=== PATIENT | female | born 1975 | race Hispanic/Latino ===

== ENCOUNTER 2017-06-09 16:08 | Emergency (ER) | payer BC ==
[2017-06-09 16:51] VITALS: BP 136/68; PULSE 86; RESP 18; TEMP 98.5; O2SAT 98
--- NOTE | 2017-06-09 16:55 | ED PDOC ---
Arrival/HPI - General Time Seen by Provider: 06/09/17 16:49 Historian: Patient - History of Present Illness Narrative History of Present Illness (Text): 06/09/17 16:51 42yo female with PMhx of Diabetes present to ED for right distal arm redness, swelling and pruritis. States she was bitten by insect last night. Thinks it was a spider. Came to ED for the redness and swelling. States the swelling improved significantly from what it was earlier. Denies tongue swelling, chest pain, SOB, any other complaint. Past Medical History - Provider Review Nursing Documentation Reviewed: Yes Family/Social History - Physician Review Nursing Documentation Reviewed: Yes Family/Social History: Unknown Family HX Allergies/Home Meds Allergies/Adverse Reactions: Allergies naproxen Allergy (Verified 06/09/17 16:37) URTICARIA Home Medications: Home Meds Medication Instructions Recorded Confirmed metFORMIN [glucOPHAGE] 500 mg PO BID 06/09/17 06/09/17 Review of Systems - Physician Review All systems were reviewed & negative as marked: Yes - Review of Systems Constitutional: Normal Eyes: Normal ENT: Normal Respiratory: Normal Cardiovascular: Normal Gastrointestinal: Normal Genitourinary Female: Normal Musculoskeletal: Normal Skin: Rash, Pruritis Neurological: Normal Endocrine: Normal Hemo/Lymphatic: Normal Psychiatric: Normal Physical Exam Vital Signs Reviewed: Yes Vital Signs Temp Pulse Resp BP Pulse Ox 06/09/17 16:51 98.5 F 86 18 136/68 98 Temperature: Afebrile Blood Pressure: Normal Pulse: Regular Respiratory Rate: Normal Appearance: Positive for: Well-Appearing, Non-Toxic, Comfortable Pain Distress: None Mental Status: Positive for: Alert and Oriented X 3 - Systems Exam Head: Present: Atraumatic, Normocephalic Pupils: Present: PERRL Extroacular Muscles: Present: EOMI Conjunctiva: Present: Normal Mouth: Present: Moist Mucous Membranes Neck: Present: Normal Range of Motion Respiratory/Chest: Present: Clear to Auscultation, Good Air Exchange. No: Respiratory Distress, Accessory Muscle Use Cardiovascular: Present: Regular Rate and Rhythm, Normal S1, S2. No: Murmurs Abdomen: Present: Normal Bowel Sounds. No: Tenderness, Distention, Peritoneal Signs Back: Present: Normal Inspection Upper Extremity: Present: Normal Inspection. No: Cyanosis, Edema Lower Extremity: Present: Normal Inspection. No: Edema Neurological: Present: GCS=15, CN II-XII Intact, Speech Normal Skin: Present: Warm, Dry, Normal Color, Erythematous (Distal left volar forearm/ wrist with warmth ), Hot (Warm to touch). No: Rashes Psychiatric: Present: Alert, Oriented x 3, Normal Insight, Normal Concentration Medical Decision Making - Medication Orders Current Medication Orders: Discontinued Medications Cephalexin Monohydrate (Keflex) 500 mg PO STAT STA PRN Reason: Protocol Stop: 06/09/17 17:03 Diphenhydramine HCl (Benadryl) 25 mg PO STAT STA Stop: 06/09/17 17:01 Famotidine (Pepcid) 20 mg PO STAT STA Stop: 06/09/17 17:01 Prednisone (Prednisone Tab) 40 mg PO STAT STA Stop: 06/09/17 17:02 Disposition/Present on Arrival - Present on Arrival Any Indicators Present on Arrival: No History of DVT/PE: No History of Uncontrolled Diabetes: No Urinary Catheter: No History of Decub. Ulcer: No History Surgical Site Infection Following: None - Disposition Have Diagnosis and Disposition been Completed?: Yes Diagnosis: Insect bite Disposition: HOME/ ROUTINE Disposition Time: 17:15 Patient Plan: Discharge Condition: STABLE Additional Instructions: Follow up with your doctor Return to ED for any new or worsening symptoms Prescriptions: Cephalexin [Keflex] 500 mg PO QID #28 capsule DiphenhydrAMINE [Benadryl] 25 mg PO Q6 #20 cap Famotidine [Pepcid] 20 mg PO DAILY #10 tab predniSONE [Prednisone] 10 mg PO DAILY #4 tab Referrals: Sara Simmons DO [Primary Care Provider] - Follow up with primary
[2017-06-09 17:00] VITALS: BMI 32.4
[2017-06-09] MEDS ORDERED: DiphenhydrAMINE 12.5 mg/5 ml LIQ UD (5 ml) PO STA (17:00)
== END 2017-06-09 18:00 | disposition home or self-care (01) ==
LOC: ED 16:08
DX: S40.861A Insect bite (nonvenomous) of right upper arm, initial encounter (principal); W57.XXXA Bitten or stung by nonvenomous insect and other nonvenomous arthropods, initial encounter

== ENCOUNTER 2017-07-03 10:23 | Inpatient (IN) | payer BC ==
--- NOTE | 2017-07-03 10:52 | ED PDOC ---
Arrival/HPI - General Chief Complaint: Abnormal Skin Integrity Time Seen by Provider: 07/03/17 10:42 Historian: Patient - History of Present Illness Narrative History of Present Illness (Text): 07/03/17 10:42 42 y/o female, pmh including dm, allergic to keflex (but not penicillin)/ naproxen (but not motrin or other nsaids), nkda, c/o lt. thigh pain and swelling x 1 week. Pt. stated that it started off as a small pimple which she was evaluated at the [facility] urgent care which did an incision but no drainage then put on the bactrim ds 06/30/2017, not improving and went to the [facility] again, evaluated by another doctor had another incision today again which again no drainage but noted to still have pain and worsening of the redness with no relief with bactrim, send to the ER for evaluation, noted to have fever at home but not sure at home as she was taking motrin around the clock, no antipyretic or nsaids taken for the past 10 hours, no night sweat, no dizziness, no calf pain, no other medical or psychological complaints. Past Medical History - Provider Review Nursing Documentation Reviewed: Yes - Infectious Disease Hx of Infectious Diseases: None - Endocrine/Metabolic Hx Diabetes Mellitus Type 2: Yes - Psychiatric Hx Substance Use: No Family/Social History - Physician Review Nursing Documentation Reviewed: Yes Family/Social History: Unknown Family HX Smoking Status: Never Smoked Hx Alcohol Use: No Hx Substance Use: No Allergies/Home Meds Allergies/Adverse Reactions: Allergies cephalexin [From Keflex] Allergy (Verified 07/03/17 10:42) URTICARIA naproxen Allergy (Verified 07/03/17 10:41) URTICARIA Home Medications: Home Meds Medication Instructions Recorded Confirmed metFORMIN [glucOPHAGE] 500 mg PO BID 06/09/17 07/03/17 Sulfamethoxazole/Trimethoprim 1 tab PO BID 07/03/17 07/03/17 [Bactrim DS Tab] Review of Systems - Review of Systems Constitutional: Fevers. absent: Fatigue Eyes: absent: Vision Changes ENT: absent: Hearing Changes Respiratory: absent: SOB, Cough Cardiovascular: absent: Chest Pain Gastrointestinal: absent: Abdominal Pain, Nausea, Vomiting Musculoskeletal: Myalgias. absent: Arthralgias, Neck Pain, Joint Swelling Skin: Rash, Skin Lesions, Cellulitis. absent: Pruritis, Laceration, Abscess, Ulcer Neurological: absent: Headache Endocrine: absent: Diaphoresis Hemo/Lymphatic: absent: Adenopathy Psychiatric: absent: Anxiety, Depression, Suicidal Ideation Physical Exam Vital Signs Temp Pulse Resp BP Pulse Ox 07/03/17 17:40 102.7 F H 88 18 112/67 98 07/03/17 17:20 102.7 F H 07/03/17 17:02 100.3 F H 89 18 120/80 07/03/17 16:30 100.3 F H 07/03/17 16:00 100.3 F H 89 18 120/80 99 07/03/17 12:23 82 18 102/65 98 07/03/17 10:37 100.2 F H 112 H 18 108/68 99 Temperature: Febrile Blood Pressure: Normal Pulse: Tachycardic Respiratory Rate: Normal Appearance: Positive for: Well-Appearing, Non-Toxic Pain Distress: Moderate Mental Status: Positive for: Alert and Oriented X 3 - Systems Exam Head: Present: Atraumatic, Normocephalic Pupils: Present: PERRL Extroacular Muscles: Present: EOMI Conjunctiva: Present: Normal Mouth: Present: Moist Mucous Membranes Neck: Present: Normal Range of Motion Respiratory/Chest: Present: Clear to Auscultation, Good Air Exchange. No: Respiratory Distress, Accessory Muscle Use Cardiovascular: Present: Regular Rate and Rhythm, Normal S1, S2. No: Murmurs Abdomen: Present: Normal Bowel Sounds. No: Tenderness, Distention, Peritoneal Signs Back: Present: Normal Inspection Upper Extremity: Present: Normal Inspection. No: Cyanosis, Edema Lower Extremity: Present: Normal Inspection. No: Edema Neurological: Present: GCS=15, Speech Normal, Motor Func Grossly Intact, Gait Normal, Memory Normal Skin: Present: Warm, Dry, Rashes (Lt. thigh medially noted to have 2 incision wound in the middle with approx. [id number] cellulitis with proximal and distal streaking, +lt. inguinal lymphenapathy, +DPPT pulses. ), Normal Color Psychiatric: Present: Alert, Oriented x 3, Normal Insight, Normal Concentration Medical Decision Making ED Course and Treatment: 07/03/17 11:01 -labs/esr/crp/ua -LLE Venuous doppler -CT LLE r/o abscess/gangrene gas -IVF/vancomycin/zosyn/toradol/tylenol -Observe and reassess 07/03/17 14:47 -Urine hcg is negative -EKG: NSR @ 93 BPM, no ST elevation or depression, T wave inversion on the lead III/V2/V3 with no previous ekg for comparison. -Chest xray: no active disease -LLE Venuous Doppler: as per preliminary report, no acute DVT -CT LLE: Superficial cellulitis proximal left thigh without drainable collection , vascular, muscular or osseous abnormality. -Labs show no acute findings except wbc 15.0 and anemia hgb 10.2 (no previous comparison, no dark stool or GI discomfort, will need trending/work up) -Lactic acid 1.1 -ESR is 75 (elevated) -UA show no UTI -Pt. failed out patient po antibiotic, +febrile with +tachycardia, +leukocytosis , will need admission for IV antibiotic and -Paging the medicine clinical applications specialist Dr. Robledo (covering Dr. Cheng) as the pmd is Dr. Simmons, discussed with the patient about the labs/radiology study and admission plan which she agreed to be admitted as well. 07/03/17 15:07 -I spoke to Dr. Robledo about the case/labs/radiology result, agreed to admit the service but admit to Dr. Cheng's service with Dr. Alvarado on routine consult. -I discussed with Dr. Cordelia Oswald, he agreed on the diagnosis/treatment and admission plan, will put in the admission order. 07/03/17 16:25 -Pt. has a fever at again 100.3F, tylenol 650mg po ordered as she was given toradol earlier. - Lab Interpretations Lab Results: 07/03/17 11:22 07/03/17 11:22 Lab Results 07/03/17 11:22: Urine Color Yellow, Urine Appearance Sl cloudy, Urine pH 6.0, Ur Specific [place] >= 1.030, Urine Protein 30 H, Urine Glucose (UA) 500 H, Urine Ketones >=80, Urine Blood Trace-intact H, Urine Nitrate Negative, Urine Bilirubin Negative, Urine Urobilinogen 0.2, Ur Leukocyte Esterase Negative, Urine RBC 0 - 2, Urine WBC 2 - 5, Ur Epithelial Cells 10 - 12, Urine Bacteria Few 07/03/17 11:22: WBC 15.0 H, RBC 4.34, Hgb 10.2 L, Hct 32.3 L, MCV 74.4 L, MCH 23.5 L, MCHC 31.6, RDW 16.3 H, Plt Count 312, MPV 9.9, Gran % 78.9 H, Lymph % ( Auto) 11.7 L, [place] % (Auto) 8.2 H, Eos % (Auto) 1.1 L, Baso % (Auto) 0.1, Gran # 11.86 H, Lymph # (Auto) 1.8, [place] # (Auto) 1.2 H, Eos # (Auto) 0.2, Baso # ( Auto) 0.01, ESR 75 H 07/03/17 11:22: C-React Prot High Sens > 15.00 H 07/03/17 11:22: Sodium 135, Chloride 105, Potassium 4.2, Carbon Dioxide 19 L, Anion Gap 16, BUN 9, Creatinine 0.5 L, Est GFR ( Amer) > 60, Est GFR (Non -Af Amer) > 60, Random Glucose 260 H, Calcium 9.6, Magnesium 1.9, Total Bilirubin 0.4, AST 20, ALT 27, Alkaline Phosphatase 84, Total Protein 7.4, Albumin 3.9, Globulin 3.5, Albumin/Globulin Ratio 1.1 07/03/17 11:22: pO2 159 H, VBG pH 7.43, VBG pCO2 31.0 L, VBG HCO3 20.6 L, VBG Total CO2 21.6 L, VBG O2 Sat (Calc) 98.7 H, VBG Base Excess -2.7 L, VBG Potassium 4.6, Sodium 132.0, Chloride 106.0, Glucose 275 H, Lactate 1.1, FiO2 21.0, Venous Blood Potassium 4.6 07/03/17 10:13: POC Glucose (mg/dL) 247 H - RAD Interpretation Radiology Orders: 07/03/17 10:53 EXT LOWER WITH CONTRAST LEFT [CT] Stat 07/03/17 10:55 DUPLEX LOWER EXTRM VEIN LEFT [US] Stat 07/03/17 11:50 CHEST PORTABLE [RAD] Stat Chest xray: HISTORY: medical clearance COMPARISON: No prior. FINDINGS: LUNGS: No active pulmonary disease. PLEURA: No significant pleural effusion identified, no pneumothorax apparent. CARDIOVASCULAR: Normal. OSSEOUS STRUCTURES: No significant abnormalities. VISUALIZED UPPER ABDOMEN: Normal. OTHER FINDINGS: None. IMPRESSION: No active disease. LLE VENUOUS DOPPLER: as per preliminary report, no acute DVT CT LLE: Cutaneous and subcutaneous edema anteriorly and medially affecting the proximal left lower extremity. No drainable collection identified. The associated vascular structures including superficial femoral artery, vein are patent. No abnormalities common femoral artery or vein. Visualized vascular structures of the left hemipelvis are similarly within normal limits. IMPRESSION: Superficial cellulitis proximal left thigh without drainable collection, vascular, muscular or osseous abnormality. Sample Coordinator: Radiologist - EKG Interpretation EKG Interpretation (Text): 07/03/17 12:44 -EKG: NSR @ 93 BPM, no ST elevation or depression, T wave inversion on the lead III/V2/V3 with no previous ekg for comparison. Interpreted by ED Physician: Yes Type: 12 lead EKG Comparison: No previous EKG avail. - Medication Orders Current Medication Orders: Acetaminophen (Tylenol 325mg Tab) 650 mg PO Q6H PRN PRN Reason: Fever >100.4 F Atorvastatin Calcium (Lipitor) 10 mg PO DIN [facility] Last Admin: 07/03/17 19:30 Dose: 10 mg Heparin Sodium (Porcine) (Heparin) 5,000 units SC Q12 CHRISTINE PRN Reason: Protocol Last Admin: 07/03/17 21:57 Dose: 5,000 units Subcutaneous Administrations Document 07/03/17 21:57 SD (Rec: 07/03/17 21:57 SD [id number]) Charges for Administration # of Subcutaneous Administrations 1 Sodium Chloride (Sodium Chloride 0.9%) 1,000 mls @ 100 mls/hr IV .Q10H [facility] Last Admin: 07/03/17 21:59 Dose: 100 mls/hr eMAR Start Stop Document 07/03/17 21:59 SD (Rec: 07/03/17 21:59 SD [id number]) Intravenous Solution Start Date 07/03/17 Start Time 21:59 Meropenem (Merrem Iv 1 Gm Premix) 50 mls @ 100 mls/hr IVPB Q8 CHRISTINE PRN Reason: Protocol Stop: 07/12/17 22:01 Last Admin: 07/04/17 06:21 Dose: 100 mls/hr eMAR Start Stop Document 07/04/17 06:21 SD (Rec: 07/04/17 06:21 SD [id number]) Intravenous Solution Start Date 07/04/17 Start Time 06:21 Linezolid (Zyvox 600mg/300ml D5w) 600 mg in 300 mls @ 200 mls/hr IVPB Q12 CHRISTINE PRN Reason: Protocol Stop: 07/11/17 09:00 Ibuprofen (Motrin Tab) 600 mg PO Q6H PRN PRN Reason: Pain, moderate (4-7) Last Admin: 07/04/17 09:12 Dose: 600 mg MAR Pain/Vitals Document 07/04/17 09:12 GM (Rec: 07/04/17 09:13 GM [id number]) Pain Reassessment Is This A Pain ReAssessment? No Presence of Pain Presence of Pain Yes Pain Scale Used Pain Scale Used Numeric Location Left, Right or Bilateral Left Pain Location Body Site Thigh Description Constant Intensity 6 Pain Behavior Guarding Alleviating Factors Medication Lisinopril (Zestril) 5 mg PO DAILY [facility] Metformin HCl (Glucophage) 500 mg PO BRKDIN [facility] Last Admin: 07/04/17 09:13 Dose: Not Given Non-Admin Reason: Patient Refused Comments: post CT with contrast day 2 Oxycodone/Acetaminophen (Percocet 10/325 Mg Tab) 1 tab PO Q4H PRN PRN Reason: Pain, severe (8-10) Last Admin: 07/04/17 04:08 Dose: 1 tab MAR Pain Assessment Document 07/04/17 04:08 SD (Rec: 07/04/17 04:08 SD [id number]) Pain Reassessment Is this a pain reassessment? No Sleep Is patient sleeping during reassessment? No Presence of Pain Presence of Pain Yes Discontinued Medications Acetaminophen (Tylenol 325mg Tab) 650 mg PO STAT STA Stop: 07/03/17 10:54 Last Admin: 07/03/17 11:21 Dose: 650 mg MAR Pain/Vitals Document 07/03/17 11:21 EWO (Rec: 07/03/17 11:22 EW [id number]) Pain Reassessment Is This A Pain ReAssessment? No Sleep Is patient sleeping during reassessment? No Presence of Pain Presence of Pain Yes Pain Scale Used Pain Scale Used Numeric Location Left, Right or Bilateral Left Upper or Lower Upper Pain Location Body Site leg Description Constant Intensity 6 Scale Used Numeric Pain Behavior Moaning Guarding Acetaminophen (Tylenol 325mg Tab) 650 mg PO STAT STA Stop: 07/03/17 16:26 Last Admin: 07/03/17 16:30 Dose: 650 mg MAR Pain/Vitals Document 07/03/17 16:30 EWO (Rec: 07/03/17 17:12 EWO [id number]) Pain Reassessment Is This A Pain ReAssessment? No Sleep Is patient sleeping during reassessment? No Presence of Pain Presence of Pain No Vitals Temperature (97.6 F-99.6 F) 100.3 F Temperature Source Oral Vancomycin HCl (Vancomycin 1gm) 1 gm in 250 mls @ 167 mls/hr IVPB STAT STA PRN Reason: Protocol Stop: 07/03/17 12:22 Last Admin: 07/03/17 13:26 Dose: 167 mls/hr eMAR Start Stop Document 07/03/17 13:26 EWO (Rec: 07/03/17 13:28 EWCOX [id number]) Intravenous Solution Start Date 07/03/17 Start Time 13:27 End Date 07/03/17 End time 15:00 Total Infusion Time 93 Piperacillin Sod/Tazobactam Sod (Zosyn 3.375 In Ns 100ml) 100 mls @ 200 mls/hr IVPB STAT STA PRN Reason: Protocol Stop: 07/03/17 11:22 Last Admin: 07/03/17 11:50 Dose: 200 mls/hr eMAR Start Stop Document 07/03/17 11:50 EWO (Rec: 07/03/17 11:52 EWO [id number]) Intravenous Solution Start Date 07/03/17 Start Time 11:52 End Date 07/03/17 End time 12:22 Total Infusion Time 30 Vancomycin HCl (Vancomycin 1gm) 1 gm in 250 mls @ 167 mls/hr IVPB 1100,2300 CHRISTINE PRN Reason: Protocol Last Admin: 07/03/17 22:01 Dose: 167 mls/hr eMAR Start Stop Document 07/03/17 22:01 SD (Rec: 07/03/17 22:01 SD [id number]) Intravenous Solution Start Date 07/03/17 Start Time 22:01 Ibuprofen (Motrin Tab) 600 mg PO STAT STA Stop: 07/03/17 17:23 Last Admin: 07/03/17 17:20 Dose: 600 mg MAR Pain/Vitals Document 07/03/17 17:20 EWO (Rec: 07/03/17 17:40 EWCOX [id number]) Vitals Temperature (97.6 F-99.6 F) 102.7 F Temperature Source Oral Ketorolac Tromethamine (Toradol) 30 mg IVP STAT STA Stop: 07/03/17 10:54 Last Admin: 07/03/17 11:22 Dose: 30 mg MAR Pain Assessment Document 07/03/17 11:22 EWO (Rec: 07/03/17 11:22 [facility] [id number]) Pain Reassessment Is this a pain reassessment? No IVP Administration Document 07/03/17 11:22 EWO (Rec: 07/03/17 11:22 [facility] [id number]) Charges for Administration # of IVP Administrations 1 Re-Assess: MAR Pain Assessment Document 07/03/17 12:22 EWO (Rec: 07/03/17 13:28 EW [id number]) Pain Reassessment Is this a pain reassessment? Yes Sleep Is patient sleeping during reassessment? No Presence of Pain Presence of Pain Yes Pain Scale Used Pain Scale Used Numeric Location Left, Right or Bilateral Left Upper or Lower Upper Pain Location Body Site Leg Description Description Intermittent Intensity of Pain at present 3 Morphine Sulfate (Morphine) 4 mg IVP STAT STA Stop: 07/03/17 13:31 Last Admin: 07/03/17 13:44 Dose: 4 mg [facility] Pain Assessment Document 07/03/17 13:44 EWO (Rec: 07/03/17 13:45 [facility] [id number]) Pain Reassessment Is this a pain reassessment? Yes Sleep Is patient sleeping during reassessment? No Presence of Pain Presence of Pain Yes Pain Scale Used Pain Scale Used Numeric Location Left, Right or Bilateral Left Upper or Lower Upper Pain Location Body Site Leg Description Description Intermittent Intensity of Pain at present 8 Pain Behavior Guarding IVP Administration Document 07/03/17 13:44 EWO (Rec: 07/03/17 13:45 [facility] [id number]) Charges for Administration # of IVP Administrations 1 Oxycodone/Acetaminophen (Percocet 10/325 Mg Tab) 1 tab PO Q4H PRN PRN Reason: Pain, moderate (4-7) Last Admin: 07/03/17 20:52 Dose: 1 tab [facility] Pain Assessment Document 07/03/17 20:52 SD (Rec: 07/03/17 20:52 [place] [id number]) Pain Reassessment Is this a pain reassessment? No Sleep Is patient sleeping during reassessment? No Presence of Pain Presence of Pain Yes Pain Scale Used Pain Scale Used Numeric Re-Assess: [facility] Pain Assessment Document 07/03/17 21:52 SD (Rec: 07/03/17 21:58 SD [place] [id number]) Pain Reassessment Is this a pain reassessment? Yes Sleep Is patient sleeping during reassessment? No Presence of Pain Presence of Pain No - PA / [employer] / Resident Statement MD/DO has reviewed & agrees with the documentation as recorded. Disposition/Present on Arrival - Present on Arrival Any Indicators Present on Arrival: No History of DVT/PE: No History of Uncontrolled Diabetes: No Urinary Catheter: No History of Decub. Ulcer: No History Surgical Site Infection Following: None - Disposition Have Diagnosis and Disposition been Completed?: Yes Diagnosis: Failure of outpatient treatment, Cellulitis, Leukocytosis, Abnormal EKG, Anemia Disposition: HOSPITALIZED Disposition Time: 11:03 Patient Plan: Admission Patient Problems: Current Active Problems Problem Status Onset Failure of outpatient treatment Acute Cellulitis Acute Leukocytosis Acute Abnormal EKG Acute Condition: STABLE
[2017-07-03] MEDS ORDERED: Vancomycin 1gm in NS 250ml 1 GM/250 ML BAG IVPB STA (10:53)
[2017-07-03] MEDS ORDERED: Piperacillin/Tazobact 3.375 gm 100 ML IVPB STA (10:53)
[2017-07-03] MEDS: Sodium Chloride 0.9% 1,000 ML IV SCH ×2 (11:23→21:59)
[2017-07-03 11:34] LABS: BASO # 0.01 K/mm3 (0.0-2.0); BASO % 0.1 % (0.0-3.0); EOS # 0.2 (0.0-0.7); EOS % 1.1 % (1.5-5.0); GRAN # 11.86 (1.4-6.5); GRAN % 78.9 % (50.0-68.0); HEMOGLOBIN 10.2 g/dL (12.0-16.0); LYMPH # 1.8 (1.2-3.4); LYMPH % 11.7 % (22.0-35.0); MEAN CELL VOLUME 74.4 fl (80.0-105.0); MEAN CORPUSCULAR HEMOGLOBIN 23.5 pg (25.0-35.0); MEAN CORPUSCULAR HGB CONC 31.6 g/dl (31.0-37.0); MEAN PLATELET VOLUME 9.9 fl (7.0-11.0); MONO # 1.2 (0.1-0.6); MONO % 8.2 % (1.0-6.0); RBC 4.34 10^6/uL (3.5-6.1); RED CELL DISTRIBUTION WIDTH 16.3 % (11.5-14.5)
[2017-07-03 11:35] LABS: VENOUS BLOOD GAS BASE EXCESS -2.7 mmol/L (0.0-2.0); VENOUS BLOOD GAS PO2 159 mm/Hg (30-55); VENOUS BLOOD PH 7.43 (7.32-7.43)
[2017-07-03 11:36] LABS: URINE BILIRUBIN NEGATIVE (NEGATIVE); URINE BLOOD TRACE-INTACT (NEGATIVE); URINE GLUCOSE (UA) 500 mg/dL (NEGATIVE); URINE LEUKOCYTE ESTERASE NEGATIVE Leu/uL (NEGATIVE); URINE PROTEIN 30 mg/dL (<30 mg/dL); URINE UROBILINOGEN 0.2 E.U./dL (<1 E.U./dL)
[2017-07-03 11:37] LABS: URINE APPEARANCE SL CLOUDY (CLEAR); URINE COLOR YELLOW (YELLOW)
[2017-07-03 11:45] LABS: URINE BACTERIA FEW (NEG); URINE RBC 0 - 2 /hpf (0-2)
[2017-07-03 11:56] LABS: ALB/GLOB RATIO 1.1 (1.1-1.8); ALBUMIN 3.9 g/dL (3.0-4.8); ALT/SGPT 27 U/L (7-56); AST/SGOT 20 U/L (14-36); BLOOD UREA NITROGEN 9 mg/dL (7-21); CALCIUM 9.6 mg/dL (8.4-10.5); GFR AFRICAN-AMERICAN > 60; GFR NON-AFRICAN AMERICAN > 60
[2017-07-03] MEDS ORDERED: Iohexol 350 MG/100 ML VIAL ONE (12:07)
--- NOTE | 2017-07-03 12:32 | RAD ---
HISTORY: medical clearance COMPARISON: No prior. FINDINGS: LUNGS: No active pulmonary disease. PLEURA: No significant pleural effusion identified, no pneumothorax apparent. CARDIOVASCULAR: Normal. OSSEOUS STRUCTURES: No significant abnormalities. VISUALIZED UPPER ABDOMEN: Normal. OTHER FINDINGS: None. IMPRESSION: No active disease. Concordant results with the preliminary interpretation rendered by the emergency department physician procedure.
[2017-07-03] MEDS ORDERED: Morphine 4 mg/ml ISec IVP STA (13:30)
--- NOTE | 2017-07-03 14:23 | CT ---
PROCEDURE: CT left lower extremity HISTORY: Lt. thigh extensive swelling, r/o gas/abscess cavi TECHNIQUE: 2.5 mm axial acquisition and display. Coronal and sagittal reconstructions. Intravenous contrast dose: 100 cc Omnipaque 350 Radiation dose: Total exam DLP = 1360.53 mGy-cm. FINDINGS: Cutaneous and subcutaneous edema anteriorly and medially affecting the proximal left lower extremity. No drainable collection identified. The associated vascular structures including superficial femoral artery, vein are patent. No abnormalities common femoral artery or vein. Visualized vascular structures of the left hemipelvis are similarly within normal limits. IMPRESSION: Superficial cellulitis proximal left thigh without drainable collection, vascular, muscular or osseous abnormality.
[2017-07-03 17:08] VITALS: BMI 47.2
[2017-07-03] MEDS ORDERED: Oxycodone/Acetaminophen 10/325 mg Tab PO PRN (18:55)
--- NOTE | 2017-07-03 19:20 | US ---
PROCEDURE: Left lower extremity venous US HISTORY: Leg pain and swelling. Evaluate for DVT. PHYSICIAN(S): Alec Pagan MD. TECHNIQUE: Duplex sonography and color-flow Doppler with graded compression were used to evaluate the deep venous system of the left lower extremity. The exam is somewhat limited by body habitus. FINDINGS: The visualized deep venous system of the left lower extremity is sonographically normal and compressible. Normal wave forms and augmentation are seen. There is no sonographic evidence for deep venous thrombosis in the visualized segments of the left lower extremity. IMPRESSION: 1. No sonographic evidence for deep venous thrombosis in the visualized segments of the left lower extremity.
--- NOTE | 2017-07-03 21:08 | HP ---
HISTORY OF PRESENT ILLNESS: Ms. Blum is a 42-year-old female admitted to the hospital with left thigh pain and swelling. She was seen in the Urgent Care at [facility]. Incision and drainage was done and she was started on Bactrim, but the area of induration, pain, swelling all increased. She could not walk this morning. She presented to ED with pain, swelling, redness of the left leg and inability to walk. CAT scan of the left leg did not show any abscess collection. She developed high-grade fever, 103 in the ED. Her diabetes mellitus is controlled with metformin; hyperlipidemia, currently on Crestor. No cough with expectoration. No chest pain. No recurrent infection. FAMILY HISTORY: Noncontributory. PERSONAL HISTORY: Never smoked. No history of alcohol abuse. ALLERGIES: CEPHALEXIN AND naproxen HOME MEDICATIONS: Bactrim, metformin 500 mg p.o. b.i.d. REVIEW OF SYSTEMS: As per HPI. Rest of the 12-point review of systems reviewed and negative. PMH : DM II, Hyperlipidemia PSH : Incision and drainage left thigh PHYSICAL EXAMINATION: GENERAL: Comfortable in bed, in no acute distress. VITAL SIGNS: Temperature, T-max 100.2. HEENT: Normal. NECK: No lymphadenopathy. CHEST: Air entry present and equal bilateral. No added sounds. CARDIOVASCULAR: S1 and S2 normal. No murmur. No gallop. ABDOMEN: Soft, nontender. No hepatosplenomegaly. EXTREMITIES: Left leg edema present, left thigh tender. SKIN: No petechiae. No rash. SPINE: Nontender. CENTRAL NERVOUS SYSTEM: Alert and oriented x3. No focal sensory or motor deficits. LABORATORY DATA: White count 15,000, hemoglobin 10.2, hematocrit 32.3. platelets 312. Sodium 132, potassium 4.2, BUN 9, creatinine 0.5, glucose . Granulocytes 78%, lymphocytes 11%. Imaging as per HPI. ASSESSMENT: 1. Left thigh cellulitis. 2. Diabetes mellitus type 2. 3. Leukocytosis. 4. Anemia. PLAN: She will be admitted to the hospital. She got a dose of vancomycin and Zosyn in the ED. We will consult ID, Dr. Alvarado. CAT scan of the left thigh did not show any collection or gangrene. We will get Surgery consultation, Dr. Haney, for the further evaluation and treatment. Diabetes mellitus controlled with current medication. We will continue metformin 500 mg p.o. b.i.d. She has leukocytosis, likely related to infection; anemia, 10.2, need workup for anemia. We will continue to monitor blood count during hospitalization. Discussed with the patient at length. Doppler of lower extremities negative for deep venous thrombosis. We will start deep venous thrombosis prophylaxis with heparin 5000 b.i.d. Minal Robledo MD LAKESHA
[2017-07-03] MEDS: Meropenem IV 1 gm in NS 50 ML IVPB SCH (21:58)
--- NOTE | 2017-07-03 22:58 | CARD ---
APPROVED REPORT EKG Measurement Heart [id number] <Conclusion> Normal sinus rhythm Possible Inferior infarct, age undetermined Cannot rule out Anterior infarct, age undetermined Abnormal ECG
[2017-07-03] MEDS ORDERED: Vancomycin 1gm in NS 250ml 1 GM/250 ML BAG IVPB SCH (23:00)
[2017-07-04] MEDS: Oxycodone/Acetaminophen 10/325 mg Tab PO PRN (04:08)
[2017-07-04] MEDS: Meropenem IV 1 gm in NS 50 ML IVPB SCH ×3 (06:21→21:16)
--- NOTE | 2017-07-04 06:26 | CP.PCM.CON ---
History of Present Illness - History of Present Illness History of Present Illness: Surgery Consult: Dr. Haney Reason for consult: r/o left thigh abscess CC: redness, swelling, pain to left upper thigh Patient is a 42 t/o female who presents complaining of worsening redness, pain and swelling to the right inner thigh. She states that on she noticed a small pimple like lesion in which she seeked medical care for. She was prescribed Bactrim at the time and told to take motrin for pain. She reports since then the redness pain and swelling progessed to below the inner part of her knee and up to her groin. She revisited [facility] which then attempted I&D of the left thigh but no fluid was expressed. She reports chills but unsure about fever. She has one episode of diarrhea but denies further episodes or constipation. PMH: DM PSH: none Social: denies etoh, tobacco, or drug use Family hx: noncontributory Review of Systems - Review of Systems All systems: reviewed and no additional remarkable complaints except Review of Systems: as stated in HPI Past Patient History - Infectious Disease Hx of Infectious Diseases: None - Past Social History Smoking Status: Never Smoked - ENDOCRINE/METABOLIC Hx Diabetes Mellitus Type 2: Yes - MUSCULOSKELETAL/RHEUMATOLOGICAL Hx Falls: No - PSYCHIATRIC Hx Substance Use: No - SURGICAL HISTORY Hx Surgeries: No Meds Allergies/Adverse Reactions: Allergies Allergy/AdvReac Type Severity Reaction Status Date / Time cephalexin [From Keflex] Allergy URTICARIA Verified 07/03/17 10:42 naproxen Allergy URTICARIA Verified 07/03/17 10:41 - Medications Medications: Current Medications Acetaminophen (Tylenol 325mg Tab) 650 mg PO Q6H PRN PRN Reason: Fever >100.4 F Atorvastatin Calcium (Lipitor) 10 mg PO DIN [facility] Last Admin: 07/03/17 19:30 Dose: 10 mg Heparin Sodium (Porcine) (Heparin) 5,000 units SC Q12 [facility] PRN Reason: Protocol Last Admin: 07/03/17 21:57 Dose: 5,000 units Sodium Chloride (Sodium Chloride 0.9%) 1,000 mls @ 100 mls/hr IV .Q10H [facility] Last Admin: 07/03/17 21:59 Dose: 100 mls/hr Meropenem (Merrem Iv 1 Gm Premix) 50 mls @ 100 mls/hr IVPB Q8 [facility] PRN Reason: Protocol Stop: 07/12/17 22:01 Last Admin: 07/03/17 21:58 Dose: 100 mls/hr Vancomycin HCl (Vancomycin 1gm) 1 gm in 250 mls @ 167 mls/hr IVPB 1100,2300 [facility] PRN Reason: Protocol Last Admin: 07/03/17 22:01 Dose: 167 mls/hr Ibuprofen (Motrin Tab) 600 mg PO Q6H PRN PRN Reason: Pain, moderate (4-7) Last Admin: 07/04/17 00:22 Dose: 600 mg Lisinopril (Zestril) 5 mg PO DAILY [facility] Metformin HCl (Glucophage) 500 mg PO BRKDIN [facility] Last Admin: 07/03/17 19:50 Dose: Not Given Oxycodone/Acetaminophen (Percocet 10/325 Mg Tab) 1 tab PO Q4H PRN PRN Reason: Pain, severe (8-10) Last Admin: 07/04/17 04:08 Dose: 1 tab Physical Exam - Constitutional Appears: Non-toxic, No Acute Distress - Head Exam Head Exam: ATRAUMATIC, NORMOCEPHALIC - Eye Exam Eye Exam: EOMI, Normal appearance - ENT Exam ENT Exam: Mucous Membranes Moist - Respiratory Exam Respiratory Exam: NORMAL BREATHING PATTERN. absent: Respiratory Distress - Cardiovascular Exam Cardiovascular Exam: REGULAR RHYTHM. absent: Tachycardia - GI/Abdominal Exam GI & Abdominal Exam: Soft. absent: Distended, Tenderness - Extremities Exam Additional comments: left inner thigh with area of erythema and induration on medial thigh expanding circumfrentially to about 5 cm above the knee and just inferior to the groin no abscess or fluctuance palpable. Small incision noted without evidence of drainage - Neurological Exam Neurological exam: Alert, Oriented x3 - Psychiatric Exam Psychiatric exam: Normal Affect, Normal Mood - Skin Skin Exam: Dry, Warm Results - Vital Signs Recent Vital Signs: Last Vital Signs Temp 102.7 F H 07/03/17 17:40 Pulse 88 07/03/17 17:40 Resp 18 07/03/17 17:40 BP 112/67 07/03/17 17:40 Pulse Ox 98 07/03/17 17:40 - Labs Result Diagrams: 07/04/17 06:00 07/04/17 06:00 Assessment & Plan - Assessment and Plan (Free Text) Assessment: 42F with left thigh cellulitis Plan: -some purulent drainage expressed this am, cont warm compresses Q2hr -cont abx -leg elevation -glenis borders to monitor for cellulitis expansion -if abscess or collection forms will consider expanding prior incision site -further recs per Dr. Lyndon Lux PGY3 - Date & Time Date: 07/04/17 Time: 07:25
[2017-07-04 07:05] LABS: BASO # 0.02 K/mm3 (0.0-2.0); BASO % 0.2 % (0.0-3.0); EOS # 0.3 (0.0-0.7); EOS % 2.6 % (1.5-5.0); GRAN # 7.55 (1.4-6.5); GRAN % 74.1 % (50.0-68.0); HEMOGLOBIN 8.8 g/dL (12.0-16.0); LYMPH # 1.5 (1.2-3.4); LYMPH % 14.6 % (22.0-35.0); MEAN CELL VOLUME 75.3 fl (80.0-105.0); MEAN CORPUSCULAR HEMOGLOBIN 22.9 pg (25.0-35.0); MEAN CORPUSCULAR HGB CONC 30.3 g/dl (31.0-37.0); MEAN PLATELET VOLUME 10.1 fl (7.0-11.0); MONO # 0.9 (0.1-0.6); MONO % 8.5 % (1.0-6.0); RBC 3.85 10^6/uL (3.5-6.1); RED CELL DISTRIBUTION WIDTH 16.8 % (11.5-14.5); WHITE BLOOD COUNT 10.2 10^3/ul (4.5-11.0)
[2017-07-04 07:18] LABS: BLOOD UREA NITROGEN 9 mg/dL (7-21); CALCIUM 8.4 mg/dL (8.4-10.5); GFR AFRICAN-AMERICAN > 60; GFR NON-AFRICAN AMERICAN > 60
[2017-07-04] MEDS: Linezolid 600 mg in D5W 300 ml 600 MG/300 ML BAG IVPB SCH ×2 (09:44→21:18)
--- NOTE | 2017-07-04 14:17 | CP.PCM.CON ---
History of Present Illness - History of Present Illness History of Present Illness: 42 year old female with PMH of DM, morbid obesity with BMI 47 came into [facility] complaining of left thigh pain and swelling. She noted a pimple like lesion on the thigh and she went to a facility where she was prescribed Bactrim but the lesion persisted and became more painful. She went back and attempt for I and D was done which did not express fluid. She does not recall insect bites, no trauma. She denies fever or chills, no nausea or vomiting, no chest pain, no SOB , no headache or dizziness, no abdominal pain, no diarrhea, no dysuria. Infectious diseases consult is requested to further evaluate and manage. Review of Systems - Review of Systems All systems: reviewed and no additional remarkable complaints except (as per HPI ) Past Patient History - Infectious Disease Hx of Infectious Diseases: None - Past Social History Smoking Status: Never Smoked - ENDOCRINE/METABOLIC Hx Diabetes Mellitus Type 2: Yes - MUSCULOSKELETAL/RHEUMATOLOGICAL Hx Falls: No - PSYCHIATRIC Hx Substance Use: No - SURGICAL HISTORY Hx Surgeries: No Meds Allergies/Adverse Reactions: Allergies Allergy/AdvReac Type Severity Reaction Status Date / Time cephalexin [From Keflex] Allergy URTICARIA Verified 07/03/17 10:42 naproxen Allergy URTICARIA Verified 07/03/17 10:41 - Medications Medications: Current Medications Acetaminophen (Tylenol 325mg Tab) 650 mg PO Q6H PRN PRN Reason: Fever >100.4 F Atorvastatin Calcium (Lipitor) 10 mg PO DIN [facility] Last Admin: 07/03/17 19:30 Dose: 10 mg Heparin Sodium (Porcine) (Heparin) 5,000 units SC Q12 [facility] PRN Reason: Protocol Last Admin: 07/03/17 21:57 Dose: 5,000 units Sodium Chloride (Sodium Chloride 0.9%) 1,000 mls @ 100 mls/hr IV .Q10H [facility] Last Admin: 07/03/17 21:59 Dose: 100 mls/hr Meropenem (Merrem Iv 1 Gm Premix) 50 mls @ 100 mls/hr IVPB Q8 [facility] PRN Reason: Protocol Stop: 07/12/17 22:01 Last Admin: 07/04/17 06:21 Dose: 100 mls/hr Vancomycin HCl (Vancomycin 1gm) 1 gm in 250 mls @ 167 mls/hr IVPB 1100,2300 [facility] PRN Reason: Protocol Last Admin: 07/03/17 22:01 Dose: 167 mls/hr Ibuprofen (Motrin Tab) 600 mg PO Q6H PRN PRN Reason: Pain, moderate (4-7) Last Admin: 07/04/17 00:22 Dose: 600 mg Lisinopril (Zestril) 5 mg PO DAILY [facility] Metformin HCl (Glucophage) 500 mg PO BRKDIN [facility] Last Admin: 07/03/17 19:50 Dose: Not Given Oxycodone/Acetaminophen (Percocet 10/325 Mg Tab) 1 tab PO Q4H PRN PRN Reason: Pain, severe (8-10) Last Admin: 07/04/17 04:08 Dose: 1 tab Physical Exam - Constitutional Appears: Chronically Ill - Head Exam Head Exam: NORMAL INSPECTION - ENT Exam ENT Exam: Mucous Membranes Moist - Neck Exam Neck exam: Negative for: Meningismus - Respiratory Exam Respiratory Exam: Decreased Breath Sounds - Cardiovascular Exam Cardiovascular Exam: +S1, +S2 - GI/Abdominal Exam GI & Abdominal Exam: Soft. absent: Tenderness - Extremities Exam Additional comments: left thigh with dressings in place Results - Vital Signs Recent Vital Signs: Last Vital Signs Temp 102.7 F H 07/03/17 17:40 Pulse 88 07/03/17 17:40 Resp 18 07/03/17 17:40 BP 112/67 07/03/17 17:40 Pulse Ox 98 07/03/17 17:40 - Labs Result Diagrams: 07/04/17 06:00 07/04/17 06:00 Assessment & Plan - Assessment and Plan (Free Text) Plan: Assessment left thigh purulent skin and skin structure infection DM morbid obesity with BMI 47 Plan Started Zyvox and Merrem pending wound cx and blood cx will monitor clinically
--- NOTE | 2017-07-04 16:19 | PN ---
DATE: 07/04/2017 SUBJECTIVE: The patient is 42 years old, seen and examined, lying in bed, seems to be in a little pain, had temperature of 102.7 last night. She had induration on the left thigh that seems to be oozing. No complaint of nausea, vomiting, or diarrhea. OBJECTIVE: VITAL SIGNS: The patient is afebrile, pulse 81, respirations 20, blood pressure 151/59. LUNGS: Bilaterally good airflow. No rhonchi or crackle. HEART: S1 and S2 audible. ABDOMEN: Soft, obese, nontender. No rebound. No guarding. NEUROLOGIC: The patient is awake, alert, oriented, communicative. LABORATORY DATA: WBC is 10.2, hemoglobin 8.8, hematocrit 29, platelets of 273. Chemistry: Sodium 137, potassium 4, chloride 109, CO2 of 20. BUN 9, creatinine 0.5. Blood sugar of 226. Blood cultures are negative. ASSESSMENT: 1. Left thigh cellulitis. 2. Morbid obesity. 3. Jzt-vnvvugi-zxazltglm diabetes. 4. Leukocytosis, improving. 5. Chronic anemia. PLAN: Currently, the patient is on metformin. She is on DVT prophylaxis. She has been started on meropenem. She is on analgesics. We will discontinue her IV fluids. She is on Zyvox. We will continue that. We will discuss with surgical team for possible I and D in the a.m. The patient wants to go home either today or tomorrow. I think she might benefit from I and D; however, CT scan does not show much collection, it is mostly erythema. The patient would benefit from IV antibiotics, where she wants to go home as soon as possible. Anh Cheng MD
[2017-07-05] MEDS: Oxycodone/Acetaminophen 10/325 mg Tab PO PRN ×2 (03:36→23:08)
[2017-07-05] MEDS: Meropenem IV 1 gm in NS 50 ML IVPB SCH ×3 (06:14→22:18)
[2017-07-05 06:35] LABS: BASO # 0.03 K/mm3 (0.0-2.0); BASO % 0.3 % (0.0-3.0); EOS # 0.4 (0.0-0.7); EOS % 4.3 % (1.5-5.0); GRAN # 6.44 (1.4-6.5); GRAN % 63.3 % (50.0-68.0); HEMOGLOBIN 9.2 g/dL (12.0-16.0); LYMPH # 2.4 (1.2-3.4); LYMPH % 23.9 % (22.0-35.0); MEAN CELL VOLUME 75.2 fl (80.0-105.0); MEAN CORPUSCULAR HEMOGLOBIN 22.8 pg (25.0-35.0); MEAN CORPUSCULAR HGB CONC 30.3 g/dl (31.0-37.0); MEAN PLATELET VOLUME 9.6 fl (7.0-11.0); MONO # 0.8 (0.1-0.6); MONO % 8.2 % (1.0-6.0); RBC 4.04 10^6/uL (3.5-6.1); RED CELL DISTRIBUTION WIDTH 16.6 % (11.5-14.5); WHITE BLOOD COUNT 10.2 10^3/ul (4.5-11.0)
[2017-07-05 06:58] LABS: ALT/SGPT 32 U/L (7-56); AST/SGOT 20 U/L (14-36); BLOOD UREA NITROGEN 8 mg/dL (7-21); CALCIUM 8.8 mg/dL (8.4-10.5); GFR AFRICAN-AMERICAN > 60; GFR NON-AFRICAN AMERICAN > 60
[2017-07-05] MEDS: Sodium Chloride 0.9% 1,000 ML IV SCH (07:00)
--- NOTE | 2017-07-05 07:22 | CP.PCM.PN ---
Subjective - Date & Time of Evaluation Date of Evaluation: 07/05/17 Time of Evaluation: 07:19 - Subjective Subjective: Surgery: Dr. Haney Patient doing ok today. She denies drainage from left thigh wound. She denies f/ c/n/v. Redness not improved. Objective - Vital Signs/Intake and Output Vital Signs (last 24 hours): Temp Pulse Resp BP Pulse Ox 98.7 F 98 H 20 151/59 H 97 07/04/17 16:00 07/04/17 16:00 07/04/17 16:00 07/04/17 09:45 07/04/17 16:00 Intake and Output: 07/05/17 07/05/17 06:59 18:59 Intake Total 100 Balance 100 - Medications Medications: Current Medications Acetaminophen (Tylenol 325mg Tab) 650 mg PO Q6H PRN PRN Reason: Fever >100.4 F Last Admin: 07/04/17 20:10 Dose: 650 mg Atorvastatin Calcium (Lipitor) 10 mg PO DIN [facility] Last Admin: 07/04/17 17:28 Dose: 10 mg Heparin Sodium (Porcine) (Heparin) 5,000 units SC Q12 [facility] PRN Reason: Protocol Last Admin: 07/04/17 21:15 Dose: 5,000 units Meropenem (Merrem Iv 1 Gm Premix) 50 mls @ 100 mls/hr IVPB Q8 [facility] PRN Reason: Protocol Stop: 07/12/17 22:01 Last Admin: 07/05/17 06:14 Dose: 100 mls/hr Linezolid (Zyvox 600mg/300ml D5w) 600 mg in 300 mls @ 200 mls/hr IVPB Q12 [facility] PRN Reason: Protocol Stop: 07/11/17 09:00 Last Admin: 07/04/17 21:18 Dose: 200 mls/hr Ibuprofen (Motrin Tab) 600 mg PO Q6H PRN PRN Reason: Pain, moderate (4-7) Last Admin: 07/05/17 00:31 Dose: 600 mg Lisinopril (Zestril) 5 mg PO DAILY [facility] Last Admin: 07/04/17 09:45 Dose: 5 mg Metformin HCl (Glucophage) 500 mg PO BRKDIN [facility] Last Admin: 07/04/17 17:28 Dose: Not Given Oxycodone/Acetaminophen (Percocet 10/325 Mg Tab) 1 tab PO Q4H PRN PRN Reason: Pain, severe (8-10) Last Admin: 07/05/17 03:36 Dose: 1 tab - Labs Labs: 07/05/17 05:45 07/05/17 05:45 - Constitutional Appears: Non-toxic, No Acute Distress - Head Exam Head Exam: ATRAUMATIC, NORMOCEPHALIC - Eye Exam Eye Exam: EOMI, Normal appearance - ENT Exam ENT Exam: Mucous Membranes Moist - Respiratory Exam Respiratory Exam: NORMAL BREATHING PATTERN. absent: Respiratory Distress - Cardiovascular Exam Cardiovascular Exam: REGULAR RHYTHM. absent: Tachycardia - Extremities Exam Additional comments: left thigh erythema and induration, stable - Neurological Exam Neurological Exam: Alert, Awake Assessment and Plan - Assessment and Plan (Free Text) Assessment: 42 y/o female with left thigh cellulitis Plan: -no abscess to drain at this time -cont warm compresses Q2 -if abscess develops will drain -cont abx -reg diet -further recs per Dr. ashok Lux PGY3
[2017-07-05] MEDS: Linezolid 600 mg in D5W 300 ml 600 MG/300 ML BAG IVPB SCH ×2 (09:14→22:18)
--- NOTE | 2017-07-05 16:40 | CP.PCM.PN ---
Subjective - Date & Time of Evaluation Date of Evaluation: 07/05/17 Time of Evaluation: 11:00 - Subjective Subjective: Comfortable, no fevers, still with pain in the left thigh. Objective - Vital Signs/Intake and Output Vital Signs (last 24 hours): Temp Pulse Resp BP Pulse Ox 98 F 72 18 110/70 97 07/05/17 09:13 07/05/17 09:13 07/05/17 09:13 07/05/17 09:13 07/05/17 09:13 Intake and Output: 07/05/17 07/05/17 06:59 18:59 Intake Total 100 Balance 100 - Medications Medications: Current Medications Acetaminophen (Tylenol 325mg Tab) 650 mg PO Q6H PRN PRN Reason: Fever >100.4 F Last Admin: 07/04/17 20:10 Dose: 650 mg Atorvastatin Calcium (Lipitor) 10 mg PO DIN [facility] Last Admin: 07/04/17 17:28 Dose: 10 mg Heparin Sodium (Porcine) (Heparin) 5,000 units SC Q12 [facility] PRN Reason: Protocol Last Admin: 07/05/17 09:15 Dose: 5,000 units Meropenem (Merrem Iv 1 Gm Premix) 50 mls @ 100 mls/hr IVPB Q8 [facility] PRN Reason: Protocol Stop: 07/12/17 22:01 Last Admin: 07/05/17 06:14 Dose: 100 mls/hr Linezolid (Zyvox 600mg/300ml D5w) 600 mg in 300 mls @ 200 mls/hr IVPB Q12 [facility] PRN Reason: Protocol Stop: 07/11/17 09:00 Last Admin: 07/05/17 09:14 Dose: 200 mls/hr Ibuprofen (Motrin Tab) 600 mg PO Q6H PRN PRN Reason: Pain, moderate (4-7) Last Admin: 07/05/17 00:31 Dose: 600 mg Lisinopril (Zestril) 5 mg PO DAILY [facility] Last Admin: 07/05/17 09:13 Dose: 5 mg Metformin HCl (Glucophage) 500 mg PO BRKDIN [facility] Last Admin: 07/05/17 08:42 Dose: Not Given Oxycodone/Acetaminophen (Percocet 10/325 Mg Tab) 1 tab PO Q4H PRN PRN Reason: Pain, severe (8-10) Last Admin: 07/05/17 03:36 Dose: 1 tab - Labs Labs: 07/05/17 05:45 07/05/17 05:45 - Constitutional Appears: Non-toxic - Head Exam Head Exam: NORMAL INSPECTION - Neck Exam Neck Exam: absent: Meningismus - Respiratory Exam Respiratory Exam: Decreased Breath Sounds - Cardiovascular Exam Cardiovascular Exam: +S1, +S2 - GI/Abdominal Exam GI & Abdominal Exam: Soft. absent: Tenderness Assessment and Plan - Assessment and Plan (Free Text) Plan: Assessment left thigh purulent skin and skin structure infection DM morbid obesity with BMI 47 Plan continue Zyvox and Merrem day 2; pending wound cx, blood cx are negative follow up further surgery plans will continue to monitor clinically
[2017-07-05 17:36] VITALS: RESP 19; TEMP 98.8
[2017-07-06] MEDS: Meropenem IV 1 gm in NS 50 ML IVPB SCH (05:51)
--- NOTE | 2017-07-06 09:03 | PN ---
DATE: 07/05/2017 SUBJECTIVE: The patient is 42 years old, seen and examined, still has pain in the left thigh. Erythema seems to be improving. No chest pain. No shortness of breath. No fever. No chills. PHYSICAL EXAMINATION: VITAL SIGNS: The patient is afebrile, pulse 72, respirations 18, blood pressure 102/71. LUNGS: Bilateral good airflow. No rhonchi or crackle. HEART: S1 and S2 audible. ABDOMEN: Soft. Nontender. No rebound. No guarding. NEUROLOGIC: The patient is awake, alert, oriented, communicative. EXTREMITIES: Left thigh medial aspect, her erythema seems to be shrinking. LABORATORY EXAM: WBC is 10.2, hemoglobin 9.2, hematocrit 30.4, platelet of 306. Chemistry: Sodium 138, potassium 3.9, chloride 108, CO2 of 22, BUN 8, creatinine 0.5, blood sugar of 224. Blood cultures are negative. ASSESSMENT: 1. Left thigh cellulitis. 2. Nlw-pnvgwow-kjpfmjlkq diabetes. 3. Hypertension. 4. Morbid obesity. PLAN: The patient is currently on metformin. She is on DVT prophylaxis. She is on atorvastatin. She is getting meropenem, ibuprofen and Zyvox. The patient said she can only stay one more day. She stated she feels very uncomfortable and we will discuss with the surgical team and ID to make discharge plan for a.m. Anh Cheng MD
[2017-07-06 09:50] VITALS: BP 106/70; PULSE 81; O2SAT 98
[2017-07-06] MEDS: Linezolid 600 mg in D5W 300 ml 600 MG/300 ML BAG IVPB SCH (09:53)
--- NOTE | 2017-07-06 11:05 | CP.PCM.PN ---
Subjective - Date & Time of Evaluation Date of Evaluation: 07/06/17 Time of Evaluation: 11:03 - Subjective Subjective: Surgery: Dr. Haney Patient reports feeling well. MIld pain to left thigh. She denies f/c/n/v. Objective - Vital Signs/Intake and Output Vital Signs (last 24 hours): Temp Pulse Resp BP Pulse Ox 98.8 F 81 19 106/70 98 07/06/17 06:00 07/06/17 09:55 07/06/17 06:00 07/06/17 09:55 07/06/17 06:00 Intake and Output: 07/06/17 07/06/17 06:59 18:59 Intake Total 1230 120 Balance 1230 120 - Medications Medications: Current Medications Acetaminophen (Tylenol 325mg Tab) 650 mg PO Q6H PRN PRN Reason: Fever >100.4 F Last Admin: 07/04/17 20:10 Dose: 650 mg Atorvastatin Calcium (Lipitor) 10 mg PO DIN [facility] Last Admin: 07/05/17 18:19 Dose: 10 mg Heparin Sodium (Porcine) (Heparin) 5,000 units SC Q12 [facility] PRN Reason: Protocol Last Admin: 07/06/17 09:57 Dose: Not Given Meropenem (Merrem Iv 1 Gm Premix) 50 mls @ 100 mls/hr IVPB Q8 [facility] PRN Reason: Protocol Stop: 07/12/17 22:01 Last Admin: 07/06/17 05:51 Dose: 100 mls/hr Linezolid (Zyvox 600mg/300ml D5w) 600 mg in 300 mls @ 200 mls/hr IVPB Q12 [facility] PRN Reason: Protocol Stop: 07/11/17 09:00 Last Admin: 07/06/17 09:53 Dose: 200 mls/hr Ibuprofen (Motrin Tab) 600 mg PO Q6H PRN PRN Reason: Pain, moderate (4-7) Last Admin: 07/06/17 08:33 Dose: 600 mg Lisinopril (Zestril) 5 mg PO DAILY [facility] Last Admin: 07/06/17 09:55 Dose: 5 mg Metformin HCl (Glucophage) 500 mg PO BRKDIN [facility] Last Admin: 07/06/17 08:46 Dose: 500 mg Oxycodone/Acetaminophen (Percocet 10/325 Mg Tab) 1 tab PO Q4H PRN PRN Reason: Pain, severe (8-10) Last Admin: 07/05/17 23:08 Dose: 1 tab - Labs Labs: 07/05/17 05:45 07/05/17 05:45 - Constitutional Appears: Non-toxic, No Acute Distress - Head Exam Head Exam: ATRAUMATIC, NORMOCEPHALIC - Eye Exam Eye Exam: EOMI, Normal appearance - ENT Exam ENT Exam: Mucous Membranes Moist - Respiratory Exam Respiratory Exam: NORMAL BREATHING PATTERN. absent: Respiratory Distress - Cardiovascular Exam Cardiovascular Exam: REGULAR RHYTHM. absent: Tachycardia - Extremities Exam Additional comments: significant improvement in left thigh cellulitis. Induration persistent in center. No drainage from small wound. Assessment and Plan - Assessment and Plan (Free Text) Assessment: 42 y/o female w/ left thigh cellulitis Plan: -no plan for I&D at this time -cont warm compresses and abx -f/u with surgery prn -further management per primary -further recs per Dr. Lyndon Lux PGY3
--- NOTE | 2017-07-06 15:28 | CP.PCM.PN ---
Subjective - Date & Time of Evaluation Date of Evaluation: 07/06/17 Time of Evaluation: 10:55 - Subjective Subjective: Comfortable in bed, pain on the left thigh is much better, no fevers, no diarrhea. Objective - Vital Signs/Intake and Output Vital Signs (last 24 hours): Temp Pulse Resp BP Pulse Ox 98.8 F 81 19 106/70 98 07/06/17 06:00 07/06/17 09:55 07/06/17 06:00 07/06/17 09:55 07/06/17 06:00 Intake and Output: 07/06/17 07/06/17 06:59 18:59 Intake Total 1230 120 Balance 1230 120 - Medications Medications: Current Medications Acetaminophen (Tylenol 325mg Tab) 650 mg PO Q6H PRN PRN Reason: Fever >100.4 F Last Admin: 07/04/17 20:10 Dose: 650 mg Atorvastatin Calcium (Lipitor) 10 mg PO DIN [facility] Last Admin: 07/05/17 18:19 Dose: 10 mg Heparin Sodium (Porcine) (Heparin) 5,000 units SC Q12 [facility] PRN Reason: Protocol Last Admin: 07/06/17 09:57 Dose: Not Given Meropenem (Merrem Iv 1 Gm Premix) 50 mls @ 100 mls/hr IVPB Q8 [facility] PRN Reason: Protocol Stop: 07/12/17 22:01 Last Admin: 07/06/17 05:51 Dose: 100 mls/hr Linezolid (Zyvox 600mg/300ml D5w) 600 mg in 300 mls @ 200 mls/hr IVPB Q12 [facility] PRN Reason: Protocol Stop: 07/11/17 09:00 Last Admin: 07/06/17 09:53 Dose: 200 mls/hr Ibuprofen (Motrin Tab) 600 mg PO Q6H PRN PRN Reason: Pain, moderate (4-7) Last Admin: 07/06/17 08:33 Dose: 600 mg Lisinopril (Zestril) 5 mg PO DAILY [facility] Last Admin: 07/06/17 09:55 Dose: 5 mg Metformin HCl (Glucophage) 500 mg PO BRKDIN [facility] Last Admin: 07/06/17 08:46 Dose: 500 mg Oxycodone/Acetaminophen (Percocet 10/325 Mg Tab) 1 tab PO Q4H PRN PRN Reason: Pain, severe (8-10) Last Admin: 07/05/17 23:08 Dose: 1 tab - Labs Labs: 07/05/17 05:45 07/05/17 05:45 - Constitutional Appears: Chronically Ill - ENT Exam ENT Exam: Mucous Membranes Moist - Neck Exam Neck Exam: absent: Meningismus - Respiratory Exam Respiratory Exam: Decreased Breath Sounds - Cardiovascular Exam Cardiovascular Exam: +S1, +S2 - GI/Abdominal Exam GI & Abdominal Exam: Soft. absent: Tenderness - Extremities Exam Additional comments: left thigh with decreasing erythema and induration Assessment and Plan - Assessment and Plan (Free Text) Plan: Assessment left thigh purulent skin and skin structure infection, slowly improving DM morbid obesity with BMI 47 Plan on Zyvox and Merrem day 3; pending wound cx, blood cx are negative discussed with Dr. Cheng - can be switched to PO Zyvox with outpatient follow up with PMD to see final wound culture results
--- NOTE | 2017-07-07 12:45 | DS ---
HISTORY OF PRESENT ILLNESS: Patient is a 42-year-old female who developed pimple on left thigh. It kept growing, so she went to see her PMD who gave Bactrim with no significant relief. Pain started to get worse and her erythema spread, so she came to emergency room. [facility] who did I and D. Yellowish pus and blood started to come out, but her redness and pain was getting worse, so she came to the ER. Patient was started on IV antibiotics, has been on Zyvox with significant improvement, was also seen by surgical team. There was no I and D required because there was no collection on CT scan. Patient started to feel better with improvement in pain and erythema. She is being discharged today on p.o. Zyvox 600 twice a day for one more week. She will follow up with Dr. Haney as outpatient in a week. DISCHARGE DIAGNOSES: 1. Left thigh abscess and cellulitis. 2. [id number] diabetes. 3. Hypertension. 4. Hyperlipidemia. 5. Morbid obesity. PLAN: Patient will stay on 2 g sodium diabetic diet and she will follow with Dr. Haney. Anh Cheng MD
== END 2017-07-06 13:53 | disposition home or self-care (01) | DRG 603 ==
LOC: ED 10:23 → ERH 15:06 → 3RNO 18:24
PROVIDERS: ADMIT Internal Medicine; ATTEND Internal Medicine
DX: L03.116 Cellulitis of left lower limb (principal); E66.01 Morbid (severe) obesity due to excess calories; Z68.42 Body mass index [BMI] 45.0-49.9, adult; E11.9 Type 2 diabetes mellitus without complications; D64.9 Anemia, unspecified; E78.5 Hyperlipidemia, unspecified; I10 Essential (primary) hypertension; Z79.84 Long term (current) use of oral hypoglycemic drugs

== ENCOUNTER 2017-07-07 03:21 | Emergency (ER) | payer BC ==
[2017-07-07 03:22] VITALS: BMI 47.2
[2017-07-07 03:57] VITALS: RESP 18
[2017-07-07] MEDS ORDERED: Sodium Chloride 0.9% 1,000 ML IV STA (04:16)
[2017-07-07] MEDS ORDERED: DiphenhydrAMINE 50 mg/ml Inj IVP STA (04:16)
--- NOTE | 2017-07-07 04:26 | ED PDOC ---
Arrival/HPI - General Chief Complaint: Allergic Reaction Time Seen by Provider: 07/07/17 03:58 Historian: Patient - History of Present Illness Narrative History of Present Illness (Text): 07/07/17 04:25 A 42 year old female, whose past medical history includes dm (Metformin), allergic to Keflex and Naproxen, presents to the emergency department complaining of lip swelling and lower extremity swelling. Patient presented to the emergency department four days ago for left thigh pain and swelling. Patient was admitted for cellulitis, discharged yesterday, was given IV Zyvox. Patient was discharged with Zyvox, took one dose last night, fell asleep and woke up with swollen lip and lower extremity swelling. Reports she was unable to stand on feet. Patient is afraid she is having an allergic reaction. Patient denies taking any Benadryl. Patient denies any shortness of breath or any other complaints at this time. Symptom Onset: Sudden Symptom Course: Unchanged Activities at Onset: Rest Context: Home Past Medical History - Provider Review Nursing Documentation Reviewed: Yes - Infectious Disease Hx of Infectious Diseases: None - Cardiac Hx Cardiac Disorders: No - Pulmonary Hx Respiratory Disorders: No - Neurological Hx Neurological Disorder: No - HEENT Hx HEENT Disorder: No - Renal Hx Renal Disorder: No - Endocrine/Metabolic Hx Diabetes Mellitus Type 2: Yes - Hematological/Oncological Hx Blood Disorders: No - Integumentary Hx Dermatological Disorder: No - Musculoskeletal/Rheumatological Hx Musculoskeletal Disorders: No Hx Falls: No - Gastrointestinal Hx Gastrointestinal Disorders: No - Genitourinary/Gynecological Hx Genitourinary Disorders: No - Psychiatric Hx Psychophysiologic Disorder: No Hx Substance Use: No Family/Social History - Physician Review Nursing Documentation Reviewed: Yes Family/Social History: No Known Family HX Smoking Status: Never Smoked Hx Alcohol Use: No Hx Substance Use: No Allergies/Home Meds Allergies/Adverse Reactions: Allergies cephalexin [From Keflex] Allergy (Verified 07/07/17 05:55) URTICARIA naproxen Allergy (Verified 07/07/17 05:55) URTICARIA Home Medications: Home Meds Medication Instructions Recorded Confirmed metFORMIN [glucOPHAGE] 500 mg PO BID 06/09/17 07/07/17 Lisinopril [Zestril] 5 mg PO DAILY 07/07/17 07/07/17 Rosuvastatin Calcium 2.5 [Crestor] 2.5 mg PO DAILY 07/07/17 07/07/17 Review of Systems - Physician Review All systems were reviewed & negative as marked: Yes - Review of Systems Constitutional: absent: Fevers Respiratory: absent: SOB Skin: Other (lip swelling). absent: Rash Physical Exam Vital Signs Reviewed: Yes Vital Signs Temp Pulse Resp BP Pulse Ox 07/07/17 06:11 97.9 F 67 18 154/96 H 97 07/07/17 03:52 98.1 F 81 18 121/78 100 Temperature: Afebrile Blood Pressure: Normal Pulse: Regular Respiratory Rate: Normal Appearance: Positive for: Well-Appearing, Non-Toxic, Comfortable Pain Distress: None Mental Status: Positive for: Alert and Oriented X 3 - Systems Exam Head: Present: Atraumatic, Normocephalic Pupils: Present: PERRL Extroacular Muscles: Present: EOMI Conjunctiva: Present: Normal Mouth: Present: Moist Mucous Membranes, Other (lip swelling) Neck: Present: Normal Range of Motion Respiratory/Chest: Present: Clear to Auscultation, Good Air Exchange. No: Respiratory Distress, Accessory Muscle Use Cardiovascular: Present: Regular Rate and Rhythm, Normal S1, S2. No: Murmurs Abdomen: Present: Normal Bowel Sounds. No: Tenderness, Distention, Peritoneal Signs Back: Present: Normal Inspection Upper Extremity: Present: Normal Inspection. No: Cyanosis, Edema Lower Extremity: Present: Normal Inspection. No: Edema Neurological: Present: GCS=15, CN II-XII Intact, Speech Normal Skin: Present: Warm, Dry, Normal Color. No: Rashes Psychiatric: Present: Alert, Oriented x 3, Normal Insight, Normal Concentration Medical Decision Making ED Course and Treatment: 07/07/17 04:24 Impression: A 42 year old female with lip swelling. Plan: -- Solumedrol, Pepcid, Benadryl, IV fluids -- labs -- Reassess and disposition Prior Visits: Notes and results from previous visits were reviewed. Patient was last seen in the emergency department on 07/03/17 for evaluation of left thigh pain and swelling. Patient was admitted for cellulitis, leukocytosis, anemia. Patient was discharged on 07/06/17, switched to Zyvox and advised outpatient follow up with PMD for final wounds culture results. Progress Notes: 07/07/17 06:18 Lip much less swollen and patient feels much better. Will DC home with Medrol, Pepcid and Benadryl. Will have her contact her doctor about any other antibiotic coverage as she is now allergic to Keflex and Zyvox. - Lab Interpretations Lab Results: 07/07/17 04:42 07/07/17 04:42 Lab Results 07/07/17 04:42: Sodium 135, Potassium 4.5, Chloride 103, Carbon Dioxide 25, Anion Gap 12, BUN 12, Creatinine 0.5 L, Est GFR ( Amer) > 60, Est GFR ( Non-Af Amer) > 60, Random Glucose 294 H, Calcium 9.3, Total Bilirubin 0.1 L, AST 42 H D, ALT 30, Alkaline Phosphatase 86, Total Protein 6.5, Albumin 3.2, Globulin 3.3, Albumin/Globulin Ratio 1.0 L 07/07/17 04:42: WBC 11.9 H, RBC 4.17, Hgb 9.7 L, Hct 31.0 L, MCV 74.3 L, MCH 23.3 L, MCHC 31.3, RDW 16.4 H, Plt Count 389, MPV 9.6, Gran % 62.3, Lymph % ( Auto) 28.9, [place] % (Auto) 5.6, Eos % (Auto) 3.0, Baso % (Auto) 0.2, Gran # 7.42 H, Lymph # (Auto) 3.4, [place] # (Auto) 0.7 H, Eos # (Auto) 0.4, Baso # (Auto) 0.02 I have reviewed the lab results: Yes - Medication Orders Current Medication Orders: Discontinued Medications Diphenhydramine HCl (Benadryl) 25 mg IVP STAT STA Stop: 07/07/17 04:17 Last Admin: 07/07/17 04:51 Dose: 25 mg IVP Administration Document 07/07/17 04:51 RG (Rec: 07/07/17 05:04 [email or web address]) Charges for Administration # of IVP Administrations 1 Famotidine (Pepcid) 40 mg IVP STAT STA Stop: 07/07/17 04:17 Last Admin: 07/07/17 04:51 Dose: 40 mg IVP Administration Document 07/07/17 04:51 RG (Rec: 07/07/17 05:05 [email or web address]) Charges for Administration # of IVP Administrations 1 Sodium Chloride (Sodium Chloride 0.9%) 1,000 mls @ 999 mls/hr IV .Q1H1M STA Stop: 07/07/17 05:16 Last Admin: 07/07/17 05:05 Dose: 999 mls/hr eMAR Start Stop Document 07/07/17 05:05 RG (Rec: 07/07/17 05:05 [email or web address]) Intravenous Solution Start Date 07/07/17 Start Time 05:05 Methylprednisolone (Solu-Medrol) 125 mg IVP STAT STA Stop: 07/07/17 04:17 Last Admin: 07/07/17 04:50 Dose: 125 mg IVP Administration Document 07/07/17 04:50 RG (Rec: 07/07/17 05:04 [email or web address]) Charges for Administration # of IVP Administrations 1 - PA / RELAY ASSOCIATE / Resident Statement MD/DO has reviewed & agrees with the documentation as recorded. - Scribe Statement The provider has reviewed the documentation as recorded by the Amado Schreiber Provider Scribe Attestation: All medical record entries made by the Santiagoibjanett were at my direction and personally dictated by me. I have reviewed the chart and agree that the record accurately reflects my personal performance of the history, physical exam, medical decision making, and the department course for this patient. I have also personally directed, reviewed, and agree with the discharge instructions and disposition. Disposition/Present on Arrival - Present on Arrival Any Indicators Present on Arrival: No History of DVT/PE: No History of Uncontrolled Diabetes: No Urinary Catheter: No History of Decub. Ulcer: No History Surgical Site Infection Following: None - Disposition Have Diagnosis and Disposition been Completed?: Yes Diagnosis: Allergic reaction caused by a drug Disposition: HOME/ ROUTINE Disposition Time: 06:19 Patient Plan: Discharge Patient Problems: Current Active Problems Problem Status Onset Allergic reaction caused by a drug Acute Condition: GOOD Discharge Instructions (ExitCare): Drug Allergy Additional Instructions: Kathy - So sorry this happened to you. You are now allergic to Keflex, Naproxen and Zyvox. It is probably a good idea for you to follow up with an [facility] [employer] for testing. Meanwhile speak with your doctors about additional antibiotic coverage for your thigh. Call them today. Return to us if any problems. Medrol may make your sugars go higher. Check them and let your doctors know if there is any problems. Best- Dr. Tee Negron Forms: [employer] (Greenlandic)
[2017-07-07 05:13] LABS: BASO # 0.02 K/mm3 (0.0-2.0); BASO % 0.2 % (0.0-3.0); EOS # 0.4 (0.0-0.7); GRAN # 7.42 (1.4-6.5); GRAN % 62.3 % (50.0-68.0); HEMOGLOBIN 9.7 g/dL (12.0-16.0); LYMPH # 3.4 (1.2-3.4); LYMPH % 28.9 % (22.0-35.0); MEAN CELL VOLUME 74.3 fl (80.0-105.0); MEAN CORPUSCULAR HEMOGLOBIN 23.3 pg (25.0-35.0); MEAN CORPUSCULAR HGB CONC 31.3 g/dl (31.0-37.0); MEAN PLATELET VOLUME 9.6 fl (7.0-11.0); MONO # 0.7 (0.1-0.6); MONO % 5.6 % (1.0-6.0); RBC 4.17 10^6/uL (3.5-6.1); RED CELL DISTRIBUTION WIDTH 16.4 % (11.5-14.5); WHITE BLOOD COUNT 11.9 10^3/ul (4.5-11.0)
[2017-07-07 06:02] LABS: ALBUMIN 3.2 g/dL (3.0-4.8); ALT/SGPT 30 U/L (7-56); AST/SGOT 42 U/L (14-36); BLOOD UREA NITROGEN 12 mg/dL (7-21); CALCIUM 9.3 mg/dL (8.4-10.5); GFR AFRICAN-AMERICAN > 60; GFR NON-AFRICAN AMERICAN > 60
[2017-07-07 06:12] VITALS: BP 154/96; PULSE 67; TEMP 97.9; O2SAT 97
== END 2017-07-07 06:45 | disposition home or self-care (01) ==
LOC: ED 03:21
DX: M79.89 Other specified soft tissue disorders (principal); R22.0 Localized swelling, mass and lump, head; T36.8X5A Adverse effect of other systemic antibiotics, initial encounter; Y92.009 Unspecified place in unspecified non-institutional (private) residence as the place of occurrence of the external cause; E11.9 Type 2 diabetes mellitus without complications
CPT/HCPCS: 80053; 82948; 85025; 96374; 96375; 99284; J1200; J2930; J7040